=== PATIENT | female | born 1950 | race Caucasian/White ===

== ENCOUNTER 2018-11-27 05:54 | Observation (INO) | payer MEDICARE | END 2018-11-28 16:50 | disposition home or self-care (01) | LOC: DAH 05:54 → DAHIP 05:55 → 4AH 10:06 ==

== ENCOUNTER → 2020-02-18 | Outpatient (CLI) | payer MEDICARE ==
[~2020-02-18] MED LIST: AEC81 PO; AMLO-258 PO; FENO160T16 PO; FLUC200T PO; LISI10TA7 PO; METF-446 PO; METO-408 PO; OMEP10CA5 PO; RALO60TA PO
== END | disposition home or self-care (01) ==
LOC: RAH 13:38
PROVIDERS: ATTEND Family Medicine
DX: R94.4 Abnormal results of kidney function studies (principal); N28.1 Cyst of kidney, acquired
CPT/HCPCS: 76770